=== PATIENT | female | born 1950 | race Caucasian/White ===

== ENCOUNTER 2018-02-08 09:44 | Emergency (ER) | payer MEDICARE, OTHER ==
--- NOTE | 2018-02-08 10:50 | ER Document Report ---
ED General - General Mode of Arrival: Ambulatory Information source: Patient, Law Enforcement TRAVEL OUTSIDE OF THE [place] IN LAST 30 DAYS: No <STEPHANIE RHODES - Last Filed: 02/08/18 11:21> <XIOMARA DOMINIQUE - Last Filed: 02/08/18 18:21> - General Chief Complaint: Psych Problem Stated Complaint: PSYCH EVAL Notes: Patient is a 67 year old female with diabetes, hyperthyroid, high cholesterol, depression and anxiety presents to the emergency department via law enforcement for a psych evaluation. Patient states she is frustrated due to recently being fired after 16 years and her passing approximately 1 month ago. She states she "tore up" her house yesterday and proceeded to go to her neighbors house to ask if they could call her boss. She states her neighbor proceeded to call law enforcement. When told NICOLE was going to be questioned, she states they are going to lie to us by stating they asked if she was suicidal and she responded by laughing. When asked if she did laugh she then states yes. Patient denies any nausea, vomiting, diarrhea, chest pain or trouble breathing. (STEPHANIE RHODES) - Related Data Allergies/Adverse Reactions: erythromycin lactobionate [From Erythrocin] Allergy (Mild, Verified 07/06/14 11: 48) URIBE WITH IV AMINISTRATION Past Medical History - General Information source: Patient - Social History Smoking Status: Former Smoker Chew tobacco use (# tins/day): No Frequency of alcohol use: None Drug Abuse: None Family History: None Patient has suicidal ideation: No Patient has homicidal ideation: No Pulmonary Medical History: Reports: Hx COPD Endocrine Medical History: Reports: Hx Diabetes Mellitus Type 2 GI Medical History: Reports: Hx Gastroesophageal Reflux Disease Psychiatric Medical History: Reports: Hx Depression - Immunizations Hx Diphtheria, Pertussis, Tetanus Vaccination: No <STEPHANIE RHODES - Last Filed: 02/08/18 11:21> Review of Systems - Review of Systems Constitutional: No symptoms reported EENT: No symptoms reported Cardiovascular: No symptoms reported Respiratory: No symptoms reported Gastrointestinal: No symptoms reported Genitourinary: No symptoms reported Female Genitourinary: No symptoms reported Musculoskeletal: No symptoms reported Skin: No symptoms reported Hematologic/Lymphatic: No symptoms reported Neurological/Psychological: See HPI -: Yes All other systems reviewed and negative <STEPHANIE RHODES - Last Filed: 02/08/18 11:21> Physical Exam <STEPHANIE RHODES - Last Filed: 02/08/18 11:21> <XIOMARA DOMINIQUE - Last Filed: 02/08/18 18:21> - Vital signs Vitals: Temp Pulse Resp BP Pulse Ox 98.7 F 109 H 16 153/81 H 92 02/08/18 09:54 02/08/18 09:54 02/08/18 09:54 02/08/18 09:54 02/08/18 09:54 - Notes Notes: GENERAL: Alert, appears frustrated. No acute distress. HEAD: Normocephalic, atraumatic. EYES: Pupils equal, round, and reactive to light. Extraocular movements intact. ENT: Oral mucosa moist, tongue midline. NECK: Full range of motion. Supple. Trachea midline. LUNGS: Clear to auscultation bilaterally, no wheezes, rales, or rhonchi. No respiratory distress. HEART: Mild tachycardia. No murmurs, gallops, or rubs. ABDOMEN: Soft, non-tender. Non-distended. Bowel sounds present in all 4 quadrants. EXTREMITIES: Moves all 4 extremities spontaneously. No edema. No cyanosis. NEUROLOGICAL: Alert and oriented x3. Normal speech. PSYCH: Appears frustrated. Talks slowly. SKIN: Warm, dry, normal turgor. No rashes or lesions noted. (STEPHANIE RHODES) Course <STEPHANIE RHODES - Last Filed: 02/08/18 11:21> - Laboratory Result Diagrams: 02/08/18 12:33 02/08/18 12:33 <XIOMARA DOMINIQUE - Last Filed: 02/08/18 18:21> - Re-evaluation Re-evalutation: 02/08/18 18:16 CBC shows chronic anemia with a hemoglobin of 9.5, in 2015 it was 9.8. She has no reason for acute blood loss anemia at this time. I will we order a repeat hemoglobin for tomorrow to help to trend this. Chemistries unremarkable, urinalysis grossly unremarkable there is trace leukocyte esterase but 2 squamous epithelial cells, this will be sent for culture, I suspect it is contamination. Acetaminophen and salicylates and alcohol are all undetectable. 02/08/18 18:18 Behavioral health has recommended Depakote and BuSpar in the treatment of this patient. They recommended maintaining this patient under IVC status and reevaluate him tomorrow. 02/08/18 18:19 Patient is medically cleared at this time and stable for transfer to inpatient psychiatric facility or discharge. (XIOMARA DOMINIQUE) - Vital Signs Vital signs: Temp Pulse Resp BP Pulse Ox 98.7 F 109 H 16 153/81 H 92 02/08/18 09:54 02/08/18 09:54 02/08/18 09:54 02/08/18 09:54 02/08/18 09:54 - Laboratory Laboratory results interpreted by me: 02/08/18 02/08/18 02/08/18 12:00 12:33 12:33 RBC 3.38 L Hgb 9.5 L Hct 28.8 L Est GFR (Non-Af Amer) 51 L Glucose 119 H Urine Protein 30 H Ur Leukocyte Esterase TRACE H Salicylates < 1.0 L Acetaminophen < 10 L - EKG Interpretation by Me Additional EKG results interpreted by me: 02/08/18 18:17 EKG shows sinus rhythm at a rate of 97, normal actions, no T-wave inversions per my interpretation. (XIOMARA DOMINIQUE) Discharge <STEPHANIE RHODES - Last Filed: 02/08/18 11:21> <XIOMARA DOMINIQUE - Last Filed: 02/08/18 18:21> - Discharge Clinical Impression: Recent bereavement Depression, major Qualifiers: Major depression recurrence: unspecified whether recurrent Active/Remission status: currently active Major depression episode severity: moderate Qualified Code(s): F32.1 - Major depressive disorder, single episode, moderate Anemia Qualifiers: Anemia type: unspecified type Qualified Code(s): D64.9 - Anemia, unspecified Condition: Stable Disposition: PSYCH HOSP/UNIT Referrals: ROXY MOLINA MD [Primary Care Provider] - Follow up as needed Scribe Attestation: 02/08/18 18:21 I personally performed the services described in the documentation, reviewed and edited the documentation which was dictated to the scribe in my presence, and it accurately records my words and actions. (XIOMARA DOMINIQUE) Scribe Documentation - Scribe Written by Scribe:: Geovani Farrar, 02/08/2018 11:24 acting as scribe for :: Jani <STEPHANIE RHODES - Last Filed: 02/08/18 11:21>
[2018-02-08 12:40] LABS: APPEARANCE,URINE SLIGHTLY-CLOUDY; BILIRUBIN,URINE NEGATIVE (NEGATIVE); COLOR,URINE YELLOW; GLUCOSE, URINE NEGATIVE (NEGATIVE); KETONES,URINE NEGATIVE (NEGATIVE); LEUKOCYTE ESTERASE,URINE TRACE (NEGATIVE); NITRITE,URINE NEGATIVE (NEGATIVE); PROTEIN,URINE 30 mg/dL (NEGATIVE); UROBILINOGEN,URINE NEGATIVE mg/dL (<2.0)
[2018-02-08 12:46] LABS: ABSOLUTE LYMPHOCYTES (AUTO) 0.9 10^3/uL (0.5-4.7); ABSOLUTE MONOCYTES (AUTO) 0.7 10^3/uL (0.1-1.4); ABSOLUTE NEUT (AUTO) 4.8 10^3/uL (1.7-8.2); BASOPHILS % (AUTO) 0.4 % (0-2); EOSINOPHILS % (AUTO) 0.4 % (0-6); HEMATOCRIT 28.8 % (36.0-47.0); HEMOGLOBIN 9.5 g/dL (12.0-15.5); LYMPHOCYTES % (AUTO) 14.3 % (13-45); MEAN CORPUSCULAR HEMOGLOBIN 28.2 pg (27.0-33.4); MEAN CORPUSCULAR HGB CONC 33.1 g/dL (32.0-36.0); MEAN CORPUSCULAR VOLUME 85 fl (80-97); PLATELET COUNT 389 10^3/uL (150-450); RED BLOOD COUNT 3.38 10^6/uL (3.72-5.28); RED CELL DISTRIBUTION WIDTH 13.7 % (11.5-14.0); SEGMENTED NEUTROPHILS % (AUTO) 73.9 % (42-78); TOTAL CELLS COUNTED % (AUTO) 100 %; WHITE BLOOD COUNT 6.4 10^3/uL (4.0-10.5)
[2018-02-08 13:05] LABS: ALANINE AMINOTRANSFERASE 36 U/L (9-52); ALBUMIN 3.9 g/dL (3.5-5.0); ALKALINE PHOSPHATASE 87 U/L (38-126); ANION GAP 12 (5-19); ASPARTATE AMINO TRANSFERASE 26 U/L (14-36); BILIRUBIN,DIRECT 0.3 mg/dL (0.0-0.4); BILIRUBIN,TOTAL 0.3 mg/dL (0.2-1.3); BLOOD UREA NITROGEN 13 mg/dL (7-20); CALCIUM 9.7 mg/dL (8.4-10.2); CARBON DIOXIDE 26 mmol/L (22-30); CHLORIDE 107 mmol/L (98-107); GLUCOSE 119 mg/dL (75-110); POTASSIUM 4.4 mmol/L (3.6-5.0); TOTAL PROTEIN 6.7 g/dL (6.3-8.2)
[2018-02-08 13:06] LABS: ACETAMINOPHEN < 10 ug/mL (10-30); ALCOHOL < 10 mg/dL (NONE DETECTED); SALICYLATE < 1.0 mg/dL (2.0-20.0)
--- NOTE | 2018-02-08 13:16 | EKG REPORT ---
SEVERITY:- NORMAL ECG - SINUS RHYTHM : Confirmed by: Greta Wang MD 08-Feb-2018 13:15:23
--- NOTE | 2018-02-08 14:50 | PSYCHOLOGICAL NOTE ---
Psych Note - Psych Note Psych Note: Reason for Consult: IVC Consent permissions: Patient's son, Paul Salas Patient is a 67 year old female with diabetes, hyperthyroid, high cholesterol, depression and anxiety presents to the emergency department via law enforcement for a psych evaluation. Patient states she is frustrated due to recently being fired after 16 years and her passing approximately 1 month ago. She states she "tore up" her house yesterday and proceeded to go to her neighbors house to ask if they could call her boss. She states her neighbor proceeded to call law enforcement. 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 She reports "she saw fit to handcuff me, I was just walking out the door." She discloses she has had multiple stressors to include losing her job, her daughter telling her she wishes she was , and "my who just did." She confirms that she has mental health diagnosis of depression and has been inpatient psychiatric treatment in the past however denies a current outpatient mental health provider. When asked about her previous inpatient psychiatric treatments she stated "I a drunk." When asked for clarification if this was her she just lost it last month ago she became very agitated and stated "different from from the one that just ." She then reported that she was having a roof put on her home today and her son was driving down from [place]. Behavior health team contacted patient's son, Paul, who identifies patient as having "underlining issues." He reports the anniversary of his sister's is in March. 2 years ago the patient had a "breakdown" around Thomas time. He reports the patient has been inpatient psychiatric treatment multiple times at [facility]. He continued disclosed concerning behaviors that have developed which include stuttering, delusions, difficult with memory. He reports the patient was seeing neurologist; however, the patient does not disclose any information she receives from the doctor. He reports the patient has abused her medications (Ativan) in the past however current presentation is not consistent with her past presentations while misusing her medication. Chart review conducted Patient had a MRI conducted on 04/30/2015 patient had a few high signal intensity lesions scattered throughout the white matter on FLAIR imaging with distribution suggesting chronic microvascular ischemia change within the cerebrum. Patient is alert and oriented to person, place, time. Mood is irritable with congruent affect. Patient is very flippant when asked about suicidal ideation listing her stressors rather than providing an answer. Eye contact is fair. Conversational speech is overall very sarcastic. Intellectual abilities when she was just appear to be within the average range. Attention and concentration are poor. Insight, judgment, impulse control are poor. Medication recommendations per [facility]'s contracted psychiatrist Dr. Stephen VANESSA are as follows 1. Depakote 250 mg twice daily 2. BuSpar 10 mg twice daily Diagnosis 296.20 (F32.9) major depressive disorder; unspecified per history provided by patient V62.82 (Z63.4) uncomplicated bereavement; Complicated bereavement; daughter R/O 799.59 (R41.9) unspecified neurocognitive disorder Impression\\plan: Patient is recommended to continue under IVC. Clinician notes patient discusses her daughter as if she is still alive however patient's son discloses the patient's daughter multiple years ago. Patient's just a month ago. Patient is very irritable and was reportedly aggressive with law enforcement. Patient has been calm, re- directable, with no outbursts since her arrival. Medication recommendations have been provided. Dr. Grove was consulted on the care and management of this patient; attending physician is in agreement with recommendations and disposition.
[2018-02-08] MEDS: BUSPIRONE HCL 10 MG TABLET PO SCH (17:43)
[2018-02-08] MEDS: DIVALPROEX SODIUM 250 MG TAB.SR.24H PO SCH (17:45)
[2018-02-08 19:47] LABS: URINE AMPHETAMINES SCREEN NEGATIVE; URINE BARBITURATES SCREEN UNCONFIRMED POSITIVE; URINE BENZODIAZEPINES SCREEN UNCONFIRMED POSITIVE; URINE COCAINE SCREEN NEGATIVE; URINE MARIJUANA (THC) SCREEN UNCONFIRMED POSITIVE; URINE METHADONE SCREEN NEGATIVE; URINE PHENCYCLIDINE SCREEN NEGATIVE
[2018-02-08] MEDS ORDERED: DIAZEPAM 5 MG TABLET PO PRN (19:58)
[2018-02-09] MEDS: QUETIAPINE FUMARATE 100 MG TABLET PO SCH (09:26)
[2018-02-09] MEDS: DIVALPROEX SODIUM 250 MG TAB.SR.24H PO SCH ×2 (09:26→17:30)
[2018-02-09] MEDS: BUSPIRONE HCL 10 MG TABLET PO SCH ×2 (09:26→17:29)
[2018-02-09] MEDS ORDERED: ACETAMINOPHEN 325 MG TABLET PO ONE (09:51)
[2018-02-09] MEDS ORDERED: LEVOTHYROXINE SODIUM 0.075 MG TABLET PO SCH (10:00)
[2018-02-09] MEDS ORDERED: METFORMIN HCL 500 MG TABLET PO SCH (10:00)
--- NOTE | 2018-02-09 10:23 | ER Document Report ---
Doctor's Note Notes: 02/09/18 10:21 Rounds: Chart reviewed and attempted to interview patient, but she is asleep. Patient's being evaluated for depression. Vital signs of all been normal. Lab studies show a hemoglobin of 9.5, chronic appearing. Drug screen positive for opioids, barbiturates, benzos, and marijuana. Patient appears to be medically stable for transfer or discharge. Clara Delgado MD
[2018-02-09 12:32] LABS: HEMATOCRIT 29.5 % (36.0-47.0); HEMOGLOBIN 9.7 g/dL (12.0-15.5); MEAN CORPUSCULAR HEMOGLOBIN 28.2 pg (27.0-33.4); MEAN CORPUSCULAR VOLUME 86 fl (80-97); PLATELET COUNT 353 10^3/uL (150-450); RED BLOOD COUNT 3.45 10^6/uL (3.72-5.28); RED CELL DISTRIBUTION WIDTH 13.9 % (11.5-14.0); WHITE BLOOD COUNT 5.9 10^3/uL (4.0-10.5)
[2018-02-09] MEDS: ACETAMINOPHEN 325 MG TABLET PO PRN (20:16)
[2018-02-09] MEDS: METFORMIN HCL 500 MG TABLET PO SCH ×2 (21:52→21:55)
[2018-02-09] MEDS ORDERED: ATORVASTATIN CALCIUM 80 MG TABLET PO SCH (22:00)
[2018-02-10] MEDS ORDERED: LEVOTHYROXINE SODIUM 0.075 MG TABLET PO SCH (06:00)
--- NOTE | 2018-02-10 08:30 | PSYCHOLOGICAL NOTE ---
Psych Note - Psych Note Psych Note: Reason for Consult: IVC Consent permissions: Patient's son, Paul Salas Patient is a 67 year old female with diabetes, hyperthyroid, high cholesterol, depression and anxiety presents to the emergency department via law enforcement for a psych evaluation. Patient states she is frustrated due to recently being fired after 16 years and her passing approximately 1 month ago. She states she "tore up" her house yesterday and proceeded to go to her neighbors house to ask if they could call her boss. She states her neighbor proceeded to call law enforcement. Check-in conducted with patient Patient confirms that she tore up her home stating that she was very angry at her boss because he wants her to work at home. She states that this would be a bad for her to be isolated. She explained that she threw some things around like papers and dishes. She reports that she did it because she was so upset she denies wanting to harm herself or harm others. When asked about her MRI conducted in 2014 she states she was told she had mini strokes by the neurologist. Clinician received phone call from patient's son who discloses the patient has typically been a "[place]" very sweet and always would give the shirt off her back. He reports that family has noticed changes in the patient's behaviors and personality for the last 2-3 years to include calling people names. He reports that this is very out of character for her. He continued to report that he knows that she had mentioned she was fired however he disclosed calling her work and found out that she was not fired it was requested that she start working from home again. 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 Medication recommendations per [facility]'s contracted psychiatrist Dr. Stephen VANESSA are as follows 1. Depakote 250 mg twice daily 2. BuSpar 10 mg twice daily Diagnosis 296.20 (F32.9) major depressive disorder; unspecified per history provided by patient V62.82 (Z63.4) uncomplicated bereavement; Complicated bereavement; daughter R/O 799.59 (R41.9) unspecified neurocognitive disorder Impression\\plan: Patient is recommended to continue under IVC. Patient was started on medications yesterday. Patient will be reevaluated to determine if discharge will be possible tomorrow. Treating physicians are asked to consider AVOID prescribing benzodiazepine (e.g. Ativan, Xanax, Valium, Klonopin), Antipsychotics (e.g. Haldol, Geodon, Zyprexa, Seroquel), some sleep aids (e.g. Ambien, Lunesta, Sonata), narcotic pain medications, and high dose steroids ( prednisone) as these have been been known to cause and/or increased symptoms of aggression, psychosis, or paranoia in patients with neurodegenerative processes such as dementia, Alzheimer's disease, traumatic brain injury, etc. Dr. Grove was consulted and the care management this patient; attending physician is agreement with recommendations and disposition.
[2018-02-10] MEDS: BUSPIRONE HCL 10 MG TABLET PO SCH (09:44)
[2018-02-10] MEDS: QUETIAPINE FUMARATE 100 MG TABLET PO SCH (09:45)
[2018-02-10] MEDS: DIVALPROEX SODIUM 250 MG TAB.SR.24H PO SCH (09:45)
--- NOTE | 2018-02-10 10:10 | ER Document Report ---
Doctor's Note Notes: 02/10/18 10:09 Rounds: Chart reviewed and patient interviewed. Patient's being evaluated for major depressive disorder. Patient's labs show a chronic appearing anemia with a hemoglobin 9.7. Her drug screen is positive for opiates, barbiturates, benzos , and marijuana. Patient has taken Fioricet and some benzo that are prescribed for her. Vital signs are all essentially normal. Patient appears to be medically stable for transfer or discharge. Clara Delgado MD
--- NOTE | 2018-02-10 10:44 | PSYCHOLOGICAL NOTE ---
Psych Note - Psych Note Psych Note: Reason for Consult: IVC Consent permissions: Patient refuses to allow her son, Paul Salas, information today. She reports her sister, Millie, can be contacted Patient is a 67 year old female with diabetes, hyperthyroid, high cholesterol, depression and anxiety presents to the emergency department via law enforcement for a psych evaluation. Patient states she is frustrated due to recently being fired after 16 years and her passing approximately 1 month ago. She states she "tore up" her house yesterday and proceeded to go to her neighbors house to ask if they could call her boss. She states her neighbor proceeded to call law enforcement. Check-in conducted with patient Upon entering patient's room patient is noted to be crying. Patient reports that she just wants to go home is tired of being made to stay. Patient denies suicidal homicidal ideation stating "my just and grieving cannot I just go home and grief and piece... I have to feed my cat... don't you understand, I just want to go home." Clinician mentioned contacting the patient 's son with the purpose of coming up with a discharge plan. Patient states she does not want her son involved that he is to knows he in getting involved and thinks he does not need to be. She reports that she would rather have the clinician speak freely with her sister, Millie. Patient mentioned being very upset when she first came in because she was still mad at her work. 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 Patient's sister was contacted by the behavioral health team. She confirms she is actually in route to hospital and is willing to be part of the patient's discharge plan. Estimated arrival will be at about 3 PM. Medication recommendations per [facility]'s contracted psychiatrist Dr. Stephen VANESSA are as follows 1. Depakote 250 mg twice daily 2. BuSpar 10 mg twice daily Diagnosis 296.20 (F32.9) major depressive disorder; unspecified per history provided by patient V62.82 (Z63.4) uncomplicated bereavement; Complicated bereavement; daughter R/O 799.59 (R41.9) unspecified neurocognitive disorder Impression\\plan: Patient is recommended for rescind of IVC and is cleared from acute psychiatric services. Patient was started on medication. While patient is tearful patient did just lose her 1 month ago; she is displaying appropriate grief. Patient has adamantly denied suicidal homicidal ideation from moment of arrival to [facility] ED. patient will be discharged to her sister Millie. Millie confirms she will be part of patient's discharge plan to ensure patient follows up with her mental health provider, follows recommendations, and does not have access to medications or weapons. Dr. Grove was consulted and the care management this patient; attending physician is agreement with recommendations and disposition.
[2018-02-10] MEDS: ACETAMINOPHEN 325 MG TABLET PO PRN (13:43)
[2018-02-10 15:23] VITALS: BP 155/92
== END 2018-02-10 15:22 | disposition home or self-care (01) ==
LOC: ER 09:44
DX: F32.1 Major depressive disorder, single episode, moderate (principal); Z63.4 Disappearance and death of family member; D64.9 Anemia, unspecified; R41.9 Unspecified symptoms and signs involving cognitive functions and awareness; E11.9 Type 2 diabetes mellitus without complications; K21.9 Gastro-esophageal reflux disease without esophagitis
CPT/HCPCS: 99285; 36415; 87086; 80307 ×4; 85025; 85027; 80053; 81001; 93005; 93010; A9270 ×14; J3490